=== PATIENT | female | born 1965 ===

== ENCOUNTER 2016-12-16 20:10 | Emergency (ER) | payer MEDICAID ==
[2016-12-16 20:46] VITALS: BP 169/103; PULSE 84; RESP 18; TEMP 98.8; O2SAT 99
--- NOTE | 2016-12-16 21:41 | ED PDOC ---
HPI: Abdomen Time Seen by Provider: 12/16/16 20:48 Chief Complaint (Nursing): Abdominal Pain Chief Complaint (Provider): Weakness, Fatigue, and Malaise History Per: Patient History/Exam Limitations: no limitations Onset/Duration Of Symptoms: Days (A month) Current Symptoms Are (Timing): Still Present Severity: Mild Quality Of Discomfort: denies: "Pain" Associated Symptoms: Diarrhea. denies: Vomiting Additional History Per: Patient Additional Complaint(s): 51 y/o female c/o weakness, markedly decrease appetite, generalized malaise, and fatigue for a month. Patient reports a unintentional weight loss of 20 lbs. Patient notes that the symptoms progressed where today she felt she was going to pass out at work. Patient also reports exceptional SOB, chills, and 2 days of non-bloody, watery diarrhea that spontaneously resolved that occurred 2 days ago. Patient notes her hair seems to be falling out easily. Denies chest pain, abdominal pains, vomiting, or fever. PMD: [place] Past Medical History Reviewed: Historical Data, Nursing Documentation, Vital Signs Vital Signs: Last Vital Signs Temp 98.8 F 12/16/16 20:38 Pulse 84 12/16/16 20:38 Resp 18 12/16/16 20:38 BP 169/103 H 12/16/16 20:38 Pulse Ox 99 12/16/16 21:48 - Medical History PMH: Anemia, Asthma, Gastritis Denies: Chronic Kidney Disease - Surgical History Surgical History: Denies: Appendectomy Other surgeries: Breast cyst resection - Family History Family History: States: Hypertension - Social History Current smoker - smoking cessation education provided: Yes Alcohol: < 2 Drinks/Day Drugs: Denies - Home Medications Home Medications: Ambulatory Orders Medication Instructions Recorded Albuterol HFA [Ventolin HFA 90 2 puff IH Q4H PRN 09/03/15 mcg/actuation (8 g)] Dicyclomine [Bentyl] 20 mg PO TID #30 tab 09/03/15 Famotidine [Pepcid] 20 mg PO BID #10 tab 09/03/15 Ondansetron [Zofran] 4 mg PO Q8H #12 tab 09/03/15 - Allergies Allergies/Adverse Reactions: Allergies Allergy/AdvReac Type Severity Reaction Status Date / Time No Known Allergies Allergy Verified 12/30/14 14:32 Review of Systems ROS Statement: Except As Marked, All Systems Reviewed And Found Negative Constitutional: Positive for: Chills, Weakness, Malaise, Other (Fatigue. Decrease appetite. Weight loss 20 lbs.). Negative for: Fever Cardiovascular: Negative for: Chest Pain Respiratory: Positive for: SOB with Exertion Gastrointestinal: Positive for: Diarrhea. Negative for: Vomiting, Abdominal Pain - Laboratory Results Result Diagrams: 12/16/16 21:35 12/16/16 22:20 - ECG O2 Sat by Pulse Oximetry: 99 (RA) Pulse Ox Interpretation: Normal Medical Decision Making Medical Decision Making: Impression: * weakness, loss of appetite, and unintentional weight loss Plans: * Blood labs * EKG * Serology * IV fluids DDx: * Viral syndrome vs [place] vs Anemia vs electrolyte abnormalities vs Thyroid disorder vs Pancreatitis vs Gastritis vs Peptic ulcer disease No emergently significant lab abnormalities. Pt has appt with Rafa Monday. Stable for dc. Scribe Attestation: Documented by Analia armstrong, acting as a scribe for Jessica Baez MD Provider Scribe Attestation: All medical record entries made by the Scribe were at my direction and personally dictated by me. I have reviewed the chart and agree that the record accurately reflects my personal performance of the history, physical exam, medical decision making, and the department course for this patient. I have also personally directed, reviewed, and agree with the discharge instructions and disposition. Disposition - Clinical Impression Clinical Impression: Weakness Counseled Patient/Family Regarding: Studies Performed, Diagnosis, Need For Followup - Disposition Referrals: Jefferson Alamo MD [Family Provider] - (FOLLOW UP SCHEDULED WITH DR ALAMO ON MONDAY) Disposition: Routine/Home Disposition Time: 23:00 Condition: STABLE Instructions: Weakness (ED) Forms: [facility] ED School/Work Excuse
[2016-12-16 21:49] LABS: BASO # 0.1 K/uL (0.0-0.2); BASO % 0.7 % (0.0-2.0); EOS # 0.1 K/uL (0.0-0.7); EOS % 1.3 % (0.0-4.0); HEMATOCRIT 38.3 % (34.0-47.0); LYMPH # 2.8 K/uL (1.0-4.3); LYMPH % 29.7 % (20.0-40.0); MEAN CELL VOLUME 94.7 fl (81.0-99.0); MEAN CORPUSCULAR HEMOGLOBIN 30.4 pg (27.0-31.0); MEAN CORPUSCULAR HGB CONC 32.1 g/dL (33.0-37.0); MONO # 0.7 K/uL (0.0-0.8); MONO % 7.3 % (0.0-10.0); NEUT # 5.7 K/uL (1.8-7.0); NRBC % 0.1 % (0.0-0.0); RED CELL DISTRIBUTION WIDTH 14.3 % (11.5-14.5); WHITE BLOOD COUNT 9.4 K/uL (4.8-10.8)
[2016-12-16 22:07] LABS: PARTIAL THROMBOPLASTIN TIME 29.1 Seconds (25.6-37.1)
[2016-12-16 22:20] LABS: ALB/GLOB RATIO 1.3 (1.0-2.1); ALKALINE PHOSPHATASE 70 U/L (38-126); ALT/SGPT 31 U/L (9-52); AST/SGOT 20 U/L (14-36); BILIRUBIN,TOTAL 0.5 mg/dl (0.2-1.3); BLOOD UREA NITROGEN 12 mg/dl (7-17); CALCIUM 9.2 mg/dL (8.4-10.2); CARBON DIOXIDE 24 mmol/L (22-30); CHLORIDE 104 mmol/L (98-107); GFR AFRICAN-AMERICAN > 60; GLUCOSE,RANDOM 83 mg/dL (65-105); LIPASE 105 U/L (23-300); MAGNESIUM 2.1 MG/DL (1.6-2.3); PHOSPHOROUS 3.8 mg/dl (2.5-4.5); POTASSIUM 3.8 MMOL/L (3.6-5.0); SODIUM 139 mmol/l (132-148); TOTAL PROTEIN 7.8 G/DL (6.3-8.2)
[2016-12-16 22:50] LABS: THYROID STIMULATING HORMONE 0.98 mIU/ML (0.46-4.68)
--- NOTE | 2016-12-17 12:22 | CARD ---
APPROVED REPORT EKG Measurement Heart [id number] <Conclusion> Normal sinus rhythm Normal ECG
== END 2016-12-16 23:43 | disposition home or self-care (01) ==
LOC: H.ER 20:10
DX: R53.1 Weakness (principal)

== ENCOUNTER 2017-04-21 09:19 | Emergency (ER) | payer MEDICAID ==
[2017-04-21 09:21] VITALS: BMI 27.3
[2017-04-21 09:23] VITALS: BP 137/92; PULSE 104; RESP 20; TEMP 97.6; O2SAT 100
--- NOTE | 2017-04-21 09:53 | ED PDOC ---
HPI: Abdomen Time Seen by Provider: 04/21/17 09:30 Chief Complaint (Nursing): Back Pain Chief Complaint (Provider): abdominal pain History Per: Patient History/Exam Limitations: no limitations Onset/Duration Of Symptoms: Days (x2) Current Symptoms Are (Timing): Still Present Additional Complaint(s): 52 year old female with medical history of gastritis, presents to the emergency department with a complaint of constipation associated with bilateral abdominal pain for 2 days. Denied any fever, chills, vomiting, vaginal bleeding or urinary symptoms. Patient stated she has severe pain when attempting to go bathroom so she took Ex-lax yesterday but continued not to have any bowel movements. PMD: Jefferson Talavera MD Past Medical History Reviewed: Historical Data, Nursing Documentation, Vital Signs Vital Signs: Last Vital Signs Temp 97.6 F 04/21/17 09:21 Pulse 104 H 04/21/17 09:21 Resp 20 04/21/17 09:21 BP 137/92 H 04/21/17 09:21 Pulse Ox 100 04/21/17 09:59 - Medical History PMH: Anemia, Asthma, Gastritis Denies: Chronic Kidney Disease - Surgical History Surgical History: Denies: Appendectomy - Family History Family History: States: Unknown Family Hx, Hypertension - Social History Current smoker - smoking cessation education provided: No Alcohol: None Drugs: Denies - Home Medications Home Medications: Ambulatory Orders Medication Instructions Recorded Albuterol HFA [Ventolin HFA 90 2 puff IH Q4H PRN 09/03/15 mcg/actuation (8 g)] Dicyclomine [Bentyl] 20 mg PO TID #30 tab 09/03/15 Famotidine [Pepcid] 20 mg PO BID #10 tab 09/03/15 Ondansetron [Zofran] 4 mg PO Q8H #12 tab 09/03/15 - Allergies Allergies/Adverse Reactions: Allergies Allergy/AdvReac Type Severity Reaction Status Date / Time No Known Allergies Allergy Verified 02/25/14 14:32 Review of Systems ROS Statement: Except As Marked, All Systems Reviewed And Found Negative Constitutional: Negative for: Fever, Chills Gastrointestinal: Positive for: Nausea (slightly), Abdominal Pain (bilaterally) , Constipation. Negative for: Vomiting Genitourinary Female: Negative for: Dysuria, Incontinence, Hematuria, Vaginal Bleeding Physical Exam - Reviewed Nursing Documentation Reviewed: Yes Vital Signs Reviewed: Yes - Physical Exam Appears: Positive for: Non-toxic, No Acute Distress Head Exam: Positive for: ATRAUMATIC, NORMAL INSPECTION, NORMOCEPHALIC Skin: Positive for: Normal Color Eye Exam: Positive for: Normal appearance ENT: Positive for: Normal ENT Inspection Neck: Positive for: Normal Cardiovascular/Chest: Positive for: Regular Rate, Rhythm, Chest Non Tender Respiratory: Positive for: Normal Breath Sounds. Negative for: Decreased Breath Sounds, Respiratory Distress Gastrointestinal/Abdominal: Positive for: Bowel Sounds (present in all four quadrants), Soft, Tenderness (mild bilaterally). Negative for: Distended Extremity: Positive for: Normal ROM (upper/lower) Neurologic/Psych: Positive for: Alert, Oriented - ECG O2 Sat by Pulse Oximetry: 100 (RA) Pulse Ox Interpretation: Normal Medical Decision Making Medical Decision Making: Initial Impression: Constipation Initial Plan: * Fleet enema ~ Scribe Attestation: Documented by Amada Batista, acting as a scribe for Adela Alicia MD. Provider Scribe Attestation: All medical record entries made by the Scribe were at my direction and personally dictated by me. I have reviewed the chart and agree that the record accurately reflects my personal performance of the history, physical exam, medical decision making, and the department course for this patient. I have also personally directed, reviewed, and agree with the discharge instructions and disposition. patient has satisfying amount of BM after enema. Patient was advised to increased fiber intake with a daily goal of 25-30grams. Disposition - Clinical Impression Clinical Impression: Bowel movement symptom - Patient ED Disposition Is Patient to be Admitted: No Doctor Will See Patient In The: Office Counseled Patient/Family Regarding: Diagnosis, Need For Followup - Disposition Referrals: Jefferson Talavera MD [Family Provider] - [facility] [Outside] Disposition: Routine/Home Disposition Time: 11:00 Condition: IMPROVED Instructions: High Fiber Diet Forms: [facility] (Khmer) - JUSTIN Present On Arrival: Sunita
== END 2017-04-21 11:45 | disposition home or self-care (01) ==
LOC: H.ER 09:19
DX: K59.00 Constipation, unspecified (principal)

== ENCOUNTER 2018-07-26 04:33 | Emergency (ER) | payer MEDICAID ==
[2018-07-26 04:34] VITALS: BMI 27.3
[2018-07-26] MEDS ORDERED: guaiFENesin 200 mg/10 ml Syrup UD PO STA (05:06)
--- NOTE | 2018-07-26 05:10 | ED PDOC ---
HPI: Influenza Time Seen by Provider: 07/26/18 04:51 Chief Complaint: Flu-like Symptoms Chief Complaint (Provider): Flu-like Symptoms History Per: Patient Exam Limitations: no limitations Onset/Duration Of Symptoms: Days (x3) Additional complaint(s):: 53 year old female presents to the emergency department with a complaint of flu-like symptoms including general bodyaches, headache, fever, and cough since 07/24/18. She took ibuprofen with limited relief and has not received the flu shot this season. Patient denies any nausea, vomiting, or diarrhea. Past Medical History Reviewed: Historical Data, Nursing Documentation, Vital Signs Vital Signs: Last Vital Signs Temp 99.7 F H 07/26/18 04:47 Pulse 99 H 07/26/18 04:47 Resp 16 07/26/18 04:47 BP 148/86 07/26/18 04:47 Pulse Ox 98 07/26/18 04:47 Primary Care Provider: Jefferson Talavera - Medical History PMH: Anemia, Asthma, Gastritis Denies: Chronic Kidney Disease - Surgical History Surgical History: Denies: Appendectomy - Family History Family History: States: Unknown Family Hx, Hypertension - Home Medications Home Medications: Ambulatory Orders Medication Instructions Recorded Albuterol HFA [Ventolin HFA 90 2 puff IH Q4H PRN 09/03/15 mcg/actuation (8 g)] Dicyclomine [Bentyl] 20 mg PO TID #30 tab 09/03/15 Famotidine [Pepcid] 20 mg PO BID #10 tab 09/03/15 Ondansetron [Zofran] 4 mg PO Q8H #12 tab 09/03/15 Azithromycin [Zithromax] 250 mg PO QAM #1 pkg 07/26/18 Benzonatate [Tessalon Perle] 100 mg PO TID PRN #15 capsule 07/26/18 Oseltamivir Cap [Tamiflu] 75 mg PO BID #10 cap 07/26/18 - Allergies Allergies/Adverse Reactions: Allergies Allergy/AdvReac Type Severity Reaction Status Date / Time No Known Allergies Allergy Verified 07/26/18 04:47 Review of Systems ROS Statement: Except As Marked, All Systems Reviewed And Found Negative Constitutional: Positive for: Fever, Other (bodyaches) Respiratory: Positive for: Cough Gastrointestinal: Negative for: Nausea, Vomiting, Diarrhea Neurological: Positive for: Headache Physical Exam - Reviewed Nursing Documentation Reviewed: Yes Vital Signs Reviewed: Yes - Physical Exam Appears: Positive for: No Acute Distress, Uncomfortable Head Exam: Positive for: ATRAUMATIC, NORMAL INSPECTION, NORMOCEPHALIC Skin: Positive for: Normal Color Eye Exam: Positive for: Normal appearance ENT: Positive for: Moist Mucous Membranes, TM Is/Are (clear bilaterally. nonbulging and nonerythematous), Other (bilateral maxillary tenderness on palpation). Negative for: Pharyngeal Erythema, Tonsillar Exudate, Tonsillar Swelling Neck: Positive for: Normal, Supple Cardiovascular/Chest: Positive for: Regular Rate, Rhythm Respiratory: Positive for: Normal Breath Sounds. Negative for: Respiratory Distress Neurological/Psych: Positive for: Awake, Alert, Normal Tone, Oriented (x3) Medical Decision Making Medical Decision Making: Initial Impression: 53 year old female with flu-like symptoms. Initial Plan: * UA * Robitussin PO * Tamiflu PO * Influenza AB Time: 620 --Labs reviewed: no significant clinical abnormality including (-) influenza. Upon provider re-evaluation, patient is medically stable, reports improvement in symptoms, and requires no further treatment in the ED at this time. Findings and plan were discussed with patient who verbalizes understanding. Patient will be discharged home with Rx for Zithromax, Tessalon Perles, and Tamiflu. Counseling was provided and all questions were answered regarding diagnosis. There is agreement to discharge plan. Return precautions discussed. Clinical Impression: sinusitis; influenza Scribe Attestation: Documented by Amada Batista, acting as a scribe for Randall Oconnell MD. Provider Scribe Attestation: All medical record entries made by the Scribe were at my direction and personally dictated by me. I have reviewed the chart and agree that the record accurately reflects my personal performance of the history, physical exam, m edical decision making, and the department course for this patient. I have also personally directed, reviewed, and agree with the discharge instructions and disposition. - Laboratory Results Urine POC: Negative - ECG O2 Sat by Pulse Oximetry: 98 (RA) Pulse Ox Interpretation: Normal Disposition - Clinical Impression Clinical Impression: Influenza, Sinusitis - Patient ED Disposition Is Patient to be Admitted: No Counseled Patient/Family Regarding: Studies Performed, Diagnosis, Need For Followup, Rx Given - Disposition Referrals: Jefferson Talavera MD [Primary Care Provider] - Disposition: Routine/Home Disposition Time: 06:21 Condition: STABLE Prescriptions: Azithromycin [Zithromax] 250 mg PO QAM #1 pkg Benzonatate [Tessalon Perle] 100 mg PO TID PRN #15 capsule PRN Reason: Cough Oseltamivir Cap [Tamiflu] 75 mg PO BID #10 cap Instructions: Sinusitis in Adults, Flu Forms: [facility] [employer] [facility] (Indonesian)
[2018-07-26] MEDS ORDERED: guaiFENesin 100 mg/5 ml Syrup UD ONE (05:11)
[2018-07-26] MEDS ORDERED: guaiFENesin 100 mg/5 ml Syrup UD PO STA (05:26)
[2018-07-26 05:31] LABS: SQUAMOUS EPITHIAL < 1 /hpf (0-5); URINE BACTERIA RARE (<OCC); URINE BILIRUBIN NEGATIVE (NEGATIVE); URINE BLOOD SMALL (NEGATIVE); URINE CLARITY CLEAR (Clear); URINE COLOR COLORLESS (YELLOW); URINE GLUCOSE (UA) NEG (NEGATIVE); URINE LEUKOCYTE ESTERASE NEG Leu/uL (Negative); URINE PROTEIN NEGATIVE (NEGATIVE); URINE UROBILINOGEN 0.2-1.0 mg/dL (0.2-1.0)
[2018-07-26 06:36] VITALS: BP 131/81; PULSE 82; RESP 18; TEMP 98.4; O2SAT 99
== END 2018-07-26 06:33 | disposition home or self-care (01) ==
LOC: H.ER 04:33
DX: J11.1 Influenza due to unidentified influenza virus with other respiratory manifestations (principal); J32.9 Chronic sinusitis, unspecified; J45.909 Unspecified asthma, uncomplicated